=== PATIENT | female | born 1950 ===

== ENCOUNTER 2022-07-26 17:49 | Inpatient (IN) | payer MEDICARE, OTHER ==
[2022-07-26 18:07] LABS: #Eosinphils 0.1 thou/uL (0.0-0.7); #Lymphocytes 1.8 thou/uL (1.20-3.40); #Monocytes 0.3 thou/uL (0.11-0.59); #Neutrophils 16.6 thou/uL (1.40-6.50); %Basophils 0.1 % (0.0-1.0); %Eosinophils 0.4 % (0.0-10.0); %Lymphocytes 9.6 % (21.0-51.0); %Monocytes 1.5 % (0.0-10.0); %Neutrophils 88.4 % (42.0-75.0); Hemoglobin 10.4 g/dL (12.0-16.0); Mean Corpuscular HGB CONC 33.1 g/dL (32.0-36.0); Mean Corpuscular Hemoglobin 32.8 pg (27.0-31.0); Mean Platelet Volume 7.3 fL (7.4-10.4); Platelet Count 407 10x3/uL (130-400); RBC Distribution Width 12.1 % (11.5-14.5); Red Blood Cell (RBC) Count 3.17 mill/uL (4.20-5.40); White Blood Cell (WBC) Count 18.8 10x3/uL (4.8-10.8)
[2022-07-26 18:20] LABS: INR-International Normal Ratio 1.1; Prothrombin Time 14.3 sec (12.0-14.7)
[2022-07-26 18:21] LABS: PTT 26.4 sec (22.9-36.1)
[2022-07-26 18:28] LABS: ALT (SGPT) 11 U/L (8-55); AST (SGOT) 13 U/L (5-34); Albumin 3.5 g/dL (3.4-4.8); Alkaline Phosphatase 53 U/L (40-110); Anion Gap 12 mmol/L (10-20); BUN (Urea Nitrogen) 10 mg/dL (9.8-20.1); Bilirubin, Total 0.7 mg/dL (0.2-1.2); Calc. Creatinine Clearance 0 mL/min (70-130); Carbon Dioxide 24 mmol/L (23-31); Chloride 96 mmol/L (98-107); Estimated GFR 62; Globulin 1.7 g/dL (2.4-3.5); Glucose 211 mg/dL (83-110); Potassium 4.2 mmol/L (3.5-5.1); Protein, Total 5.2 g/dL (5.8-8.1); Sodium 128 mmol/L (136-145)
[2022-07-26] MEDS ORDERED: Acetaminophen 325 MG TAB PO PRN (19:45)
[2022-07-26] MEDS ORDERED: Ondansetron PF 4 MG/2 ML Vial IVP PRN (19:45)
[2022-07-26] MEDS ORDERED: Ondansetron ODT 4 MG TAB PO PRN (19:45)
[2022-07-26] MEDS ORDERED: Acetaminophen 650 MG Suppository PR PRN (19:45)
[2022-07-26 22:21] VITALS: BMI 19.4
[2022-07-26 23:04] LABS: Hemoglobin 11.8 g/dL (12.0-16.0)
[2022-07-26] MEDS ORDERED: Carvedilol 25 MG TAB PO SCH (23:30)
[2022-07-26] MEDS ORDERED: Losartan 25 MG TAB PO SCH (23:30)
[2022-07-26] MEDS: Sodium Chloride 0.9% 1,000 ML IV SCH (23:54)
[2022-07-27 06:26] LABS: Anion Gap 12 mmol/L (10-20); BUN (Urea Nitrogen) 11 mg/dL (9.8-20.1); Calc. Creatinine Clearance 53 mL/min (70-130); Calcium 7.5 mg/dL (7.8-10.44); Carbon Dioxide 22 mmol/L (23-31); Chloride 102 mmol/L (98-107); Estimated GFR 91; Glucose 86 mg/dL (83-110); Potassium 4.6 mmol/L (3.5-5.1); Sodium 131 mmol/L (136-145)
[2022-07-27] MEDS ORDERED: Calcium Carbonate 500 MG ChewTAB PO PRN (07:56)
[2022-07-27] MEDS: Sodium Chloride 0.9% 1,000 ML IV SCH (07:57)
[2022-07-27] MEDS ORDERED: Sodium Chloride 0.9% 1,000 ML IV SCH ×2 (07:58→12:50)
[2022-07-27 08:32] LABS: #Eosinphils 0.1 thou/uL (0.0-0.7); #Lymphocytes 1.4 thou/uL (1.20-3.40); #Monocytes 1.1 thou/uL (0.11-0.59); #Neutrophils 12.3 thou/uL (1.40-6.50); %Basophils 0.1 % (0.0-1.0); %Eosinophils 0.5 % (0.0-10.0); %Lymphocytes 9.3 % (21.0-51.0); %Monocytes 7.2 % (0.0-10.0); Hemoglobin 10.6 g/dL (12.0-16.0); Mean Corpuscular HGB CONC 32.6 g/dL (32.0-36.0); Mean Corpuscular Hemoglobin 32.4 pg (27.0-31.0); Mean Corpuscular Volume 99.4 fl (78.0-98.0); Mean Platelet Volume 7.4 fL (7.4-10.4); Platelet Count 255 10x3/uL (130-400); RBC Distribution Width 12.3 % (11.5-14.5); Red Blood Cell (RBC) Count 3.28 mill/uL (4.20-5.40); White Blood Cell (WBC) Count 14.8 10x3/uL (4.8-10.8)
[2022-07-27 08:49] LABS: Anion Gap 12 mmol/L (10-20); BUN (Urea Nitrogen) 11 mg/dL (9.8-20.1); Calc. Creatinine Clearance 51 mL/min (70-130); Calcium 7.6 mg/dL (7.8-10.44); Carbon Dioxide 21 mmol/L (23-31); Chloride 103 mmol/L (98-107); Estimated GFR 88; Glucose 75 mg/dL (83-110); Magnesium 1.9 mg/dL (1.6-2.6); Potassium 4.9 mmol/L (3.5-5.1); Sodium 131 mmol/L (136-145)
[2022-07-27] MEDS ORDERED: Carvedilol 25 MG TAB PO SCH (09:00)
[2022-07-27] MEDS ORDERED: Losartan 25 MG TAB PO PRN (17:42)
[2022-07-27] MEDS ORDERED: Carvedilol 3.125 MG TAB PO SCH (17:45)
[2022-07-27] MEDS ORDERED: Losartan 25 MG TAB PO SCH (21:00)
[2022-07-27] MEDS: Docusate 100 MG CAP PO SCH (21:05)
[2022-07-28] MEDS ORDERED: Melatonin 3 MG TAB PO PRN (01:01)
[2022-07-28 06:14] LABS: Hemoglobin 9.7 g/dL (12.0-16.0)
[2022-07-28] MEDS ORDERED: Carvedilol 3.125 MG TAB PO SCH (08:00)
[2022-07-28 08:01] VITALS: BP 144/73; TEMP 98.6
[2022-07-28] MEDS ORDERED: Thyroid 60 MG TAB PO SCH (09:00)
[2022-07-28] MEDS ORDERED: Liothyronine Sodium 5 MCG TAB PO SCH (09:00)
[2022-07-28] MEDS: Docusate 100 MG CAP PO SCH (09:05)
== END 2022-07-28 11:01 | disposition home or self-care (01) | DRG 920 ==
LOC: ERS 17:49 → T4-A 19:25 → INTOOBSV 19:25 → OBSVTOIN 07-27 14:50
PROVIDERS: ADMIT Internal Medicine; ATTEND Internal Medicine
PROC: 30233N1 Transfusion of Nonautologous Red Blood Cells into Peripheral Vein, Percutaneous Approach (ICD-10-PCS; principal; 2022-07-26)
DX: K91.840 Postprocedural hemorrhage of a digestive system organ or structure following a digestive system procedure (principal); D62 Acute posthemorrhagic anemia; E87.1 Hypo-osmolality and hyponatremia; Z20.822 Contact with and (suspected) exposure to COVID-19; E03.9 Hypothyroidism, unspecified; I34.0 Nonrheumatic mitral (valve) insufficiency; E86.0 Dehydration; E86.1 Hypovolemia; I95.1 Orthostatic hypotension; N18.2 Chronic kidney disease, stage 2 (mild); I12.9 Hypertensive chronic kidney disease with stage 1 through stage 4 chronic kidney disease, or unspecified chronic kidney disease; D72.829 Elevated white blood cell count, unspecified; D69.6 Thrombocytopenia, unspecified; Y84.8 Other medical procedures as the cause of abnormal reaction of the patient, or of later complication, without mention of misadventure at the time of the procedure; Z90.710 Acquired absence of both cervix and uterus; Z80.49 Family history of malignant neoplasm of other genital organs; Z79.899 Other long term (current) drug therapy; Z79.890 Hormone replacement therapy
CPT/HCPCS: 36415; 36430; 80048; 80053; 83735; 85014; 85018; 85025; 85610; 85730; 86850; 86900; 86901; 94760; J7050; P9016; U0003; U0005